=== PATIENT | male | born 1960 | race African-American/Black ===

== ENCOUNTER 2018-08-28 06:19 | Day surgery (SDC) | payer OTHER ==
[2018-08-26 13:17] VITALS: BMI 35.7
[2018-08-28 07:27] LABS: URINE APPEARANCE CLEAR; URINE BILIRUBIN NEGATIVE (<2.0 mg/dL); URINE COLOR STRAW; URINE GLUCOSE (UA) 3+ (NEGATIVE); URINE KETONE NEGATIVE (NEGATIVE); URINE LEUK ESTERASE NEGATIVE (NEGATIVE); URINE NITRITE NEGATIVE (NEGATIVE); URINE PROTEIN NEGATIVE (NEGATIVE); URINE UROBILINOGEN NEGATIVE mg/dL (0.2-1.0)
[2018-08-28] MEDS ORDERED: MIDAZOLAM HCL 2 MG/2 ML SINGLE DOSE VIAL ONE ×2 (07:33)
[2018-08-28] MEDS ORDERED: PROPOFOL 20 ML ONE (07:33)
[2018-08-28] MEDS ORDERED: LIDOCAINE HCL 1%, 10 MG/ML (20ML VIAL) ONE (07:36)
[2018-08-28] MEDS ORDERED: BUPIVACAINE HCL/PF 0.5% (5MG/ML) 10 ML VIAL ONE (07:37)
--- NOTE | 2018-08-28 08:06 | HP ---
Satellite [facility] - Chief Complaint Chief Complaint: right hand pain, numbness History of Present Illness: right CTS History Source: Patient Limitations to Obtaining History: No Limitations - Past Medical History Allergies/Adverse Reactions: Allergies Allergy/AdvReac Type Severity Reaction Status Date / Time No Known Drug Allergies Allergy Verified 05/02/16 10:44 - Current Medications Current Medications: Home Medications Medication Instructions Recorded Lisinopril [Prinivil] 20 mg PO DAILY 04/12/15 Metformin HCl [Metformin HCl ER] 1,000 mg PO BID 04/12/15 Oxycodone HCl/Acetaminophen 1 - 2 each PO Q6H #90 tablet MDD 8 05/03/16 [Percocet 10-325 mg Tablet] Sitagliptin Phosphate [Januvia] 100 mg PO DAILY 08/26/18 Satellite Physical Exam - Physical Examination Vital Signs: Vital Signs Period Temp Pulse Resp BP Sys/Avitia Pulse Ox Last 24 Hr 98.5 F 71 18 111/71 97 General Appearance: Well Nourished ENT: Clear Lung: Clear to auscultation Heart: Regular rate & rhythm Breasts: Soft Abdomen: Soft Extremities: No edema Satellite Impression/Plan - Impression/Plan Impression: right CTS Operative Procedure: right CTR, tenosynovectomy Date to be Performed: 08/28/18
[2018-08-28] MEDS ORDERED: ceFAZolin SODIUM 1 GM VIAL IVPB ONE ×2 (08:10→08:32)
[2018-08-28] MEDS ORDERED: ceFAZolin SODIUM 1 GM VIAL ONE (08:12)
[2018-08-28] MEDS ORDERED: DEXAMETHASONE SOD PHOSPHATE 4 MG/1 ML VIAL ONE (08:12)
[2018-08-28] MEDS ORDERED: LIDOCAINE HCL 1%, 10 MG/ML (20ML VIAL) INF ONE (08:30)
[2018-08-28] MEDS ORDERED: BUPIVACAINE HCL/PF 0.5% (5MG/ML) 10 ML VIAL IJ ONE (08:30)
--- NOTE | 2018-08-28 08:55 | OP ---
Operative Note - Note: Operative Date: 08/28/18 Pre-Operative Diagnosis: right CTS Operation: right CTR, tenosynovectomy Post-Operative Diagnosis: Same as Pre-op Surgeon: Venkat Akins Anesthesiologist/FERRY PILOT: Ruba Hollis Anesthesia: Local, MAC Specimens Removed: tenosynovium Estimated Blood Loss (mls): 0 Drains, Volume Out (mls): 0 Blood Volume Replaced (mls): 0 Fluid Volume Replaced (mls): 500 Operative Report Dictated: Yes
--- NOTE | 2018-08-28 09:24 | SPEC ---
DATE OF OPERATION: 08/28/2018 PREOPERATIVE DIAGNOSIS: Right carpal tunnel syndrome. POSTOPERATIVE DIAGNOSIS: Right carpal tunnel syndrome. PROCEDURE: Right carpal tunnel release and tenosynovectomy. SURGEON: Venkat Akins MD. ASSISTANTS: None. SMEARER: , PICC NURSE ANESTHESIA: MAC anesthesia, local injection of 12 mL of 0.5% Marcaine and 1% lidocaine mixed. DRAINS: None. COMPLICATIONS: None. SPECIMEN: Tenosynovium, right wrist. BLOOS LOSS: Minimal. FLUID REPLACEMENT: 500 mL. INDICATIONS: This patient is a 57-year-old male with a preoperative diagnosis of a right carpal tunnel syndrome. After understanding the potential risks, complications, alternatives and benefits of surgery versus nonsurgical treatment, the patient elected to undergo this procedure. DESCRIPTION OF PROCEDURE: The patient was brought to the operating room, peripheral IV placed and intravenous sedation was given. One gram of intravenous Ancef was given. MAC anesthesia was induced. A tourniquet was applied to the right upper arm and the right upper extremity was prepped and draped in sterile fashion. The entire case was done under 3.8 loupe magnification. A marking pen was utilized to onur out a longitudinal incision in an already existing skin crease. Twenty mL of 0.5% Marcaine mixed with 1% Lidocaine was injected in and around the surgical incision. The right upper extremity was elevated, exsanguinated with an Esmarch bandage and the tourniquet inflated to 250 mmHg. A No. 15 scalpel blade was utilized to cut down through the skin. Subcutaneous hemostasis was achieved with the bipolar cautery. Dissection was done through the superficial palmar fascia. Self-retaining retractors were placed into the wound. Under direct visualization, the transverse carpal ligament was transected with a No. 15 scalpel blade, exposing the median nerve and the contents of the carpal tunnel. The distal and proximal extents of the release were completed with a Littler scissor and checked with irrigation and my small finger. They were seen to be complete. Limited dissection was done on the radial side of the median nerve and more extensive dissection was done on the ulnar side of the median nerve. The patients nerve was seen to be quite compressed by epineurium and therefore a limited epineurotomy was performed. A Ragnell retractor was used to gently retract the median nerve in a radial direction. The patient had a lot of tenosynovitis and therefore a tenosynovectomy was performed off all 9 flexor tendons. This was passed off the field as tenosynovium right wrist. The floor of the carpal tunnel was checked. There were no abnormal masses or ganglion cysts. The area was copiously irrigated and washed out and closure begun. Undyed 4-0 Vicryl was used to close the deep dermal layer. Final skin reapproximation was done with horizontal mattress 4-0 nylon sutures. The area was then washed and dried, covered with Xeroform, 4x4s, fluffs between the fingers, Webril and a 4-inch plaster roll was utilized to make a volar splint, which was then wrapped with Vidal and Coban. The tourniquet was taken down after a total tourniquet time of 20 minutes. There were no complications during the case. The patient tolerated the procedure well and was brought to the ambulatory recovery room in stable condition. Tory [id number]
[2018-08-28] MEDS ORDERED: ONDANSETRON 4 MG/2 ML VIAL IVPUSH PRN (09:56)
[2018-08-28] MEDS ORDERED: oxyCODONE HCL 5 MG TABLET PO PRN ×2 (09:56)
[2018-08-28] MEDS ORDERED: LACTATED RINGERS SOLUTION 1,000 ML IV SCH (10:00)
[2018-08-28 10:12] VITALS: PULSE 80; TEMP 97.8
[2018-08-28 10:56] VITALS: BP 110/70
--- NOTE | 2018-08-29 13:34 | PATH ---
Surgical Pathology Report Patient Name: HAM MAX [facility]. Rec. #: [id number] /Age/Gender: 1960 (Age: 57) / M Account: [id number] [place] [facility] Taken: 08/28/2018 Received: 08/28/2018 Reported: 08/29/2018 Physicians: Venkat Akins M.D. Specimen(s) Received TENOSYNOVIUM Clinical History Right carpal tunnel Final Diagnosis TENOSYNOVIUM, RIGHT, CARPAL TUNNEL RELEASE: BENIGN DENSE FIBROCONNECTIVE TISSUE. Electronically Signed Natali Leigh M.D. Gross Description Received in formalin labeled "tenosynovium," is a 1.1 x 0.8 x 0.3 cm aggregate of murray-yellow portions of soft tissue, consistent with tenosynovium. The specimen is submitted in toto in one cassette. 08/28/201808/28/2018
== END 2018-08-28 10:57 | disposition home or self-care (01) ==
LOC: JASU-SURG 06:19
PROVIDERS: ATTEND Orthopaedic Surgery
PROC: 01N50ZZ Release Median Nerve, Open Approach (ICD-10-PCS; principal; 2018-08-28 08:00)
DX: G56.01 Carpal tunnel syndrome, right upper limb (principal)
CPT/HCPCS: 81003; 82962; 88304-TC; 94760

== ENCOUNTER 2019-05-28 06:07 | Day surgery (SDC) | payer BC ==
[2019-05-27 15:44] VITALS: BMI 35.7
[~2019-05-28 06:07] MED LIST: BUPIVACAINE HCL/PF 0.5% (5 MG/ML) 30 ML VIAL IJ ONE
[2019-05-28 07:41] LABS: PH,URINE 5.5 (5.0-8.0); URINE APPEARANCE CLEAR; URINE BILIRUBIN NEGATIVE (NEGATIVE); URINE COLOR YELLOW; URINE GLUCOSE (UA) 3+ (NEGATIVE); URINE KETONE NEGATIVE (NEGATIVE); URINE LEUK ESTERASE NEGATIVE (NEGATIVE); URINE NITRITE NEGATIVE (NEGATIVE); URINE PROTEIN NEGATIVE (NEGATIVE); URINE UROBILINOGEN 0.2 mg/dL (0.2-1.0)
[2019-05-28] MEDS ORDERED: MIDAZOLAM HCL 2 MG/2 ML SINGLE DOSE VIAL ONE ×2 (07:52)
[2019-05-28] MEDS ORDERED: SUCCINYLCHOLINE CHLORIDE 200 MG/10 ML SYRINGE ONE (07:52)
[2019-05-28] MEDS ORDERED: PROPOFOL 20 ML ONE ×3 (07:52)
[2019-05-28] MEDS ORDERED: BUPIVACAINE HCL/PF 0.5% (5 MG/ML) 30 ML VIAL IJ ONE (07:54)
[2019-05-28] MEDS ORDERED: ONDANSETRON 4 MG/2 ML VIAL IVPUSH PRN (07:58)
[2019-05-28] MEDS ORDERED: oxyCODONE HCL 5 MG TABLET PO PRN (07:58)
[2019-05-28] MEDS ORDERED: PROMETHAZINE HCL 25 MG/1 ML VIAL IVPB PRN (07:58)
[2019-05-28] MEDS ORDERED: LACTATED RINGERS SOLUTION 1,000 ML IV SCH (08:00)
--- NOTE | 2019-05-28 08:11 | HP ---
Satellite [facility] - Chief Complaint Chief Complaint: left knee pain History of Present Illness: left knee medial meniscus tear History Source: Patient Limitations to Obtaining History: No Limitations - Past Medical History Allergies/Adverse Reactions: Allergies Allergy/AdvReac Type Severity Reaction Status Date / Time No Known Drug Allergies Allergy Verified 05/28/19 06:48 - Current Medications Current Medications: Home Medications Medication Instructions Recorded Lisinopril [Prinivil] 20 mg PO DAILY 04/12/15 metFORMIN HCL [Metformin ER 1,000 mg PO BID 04/12/15 Osmotic] Oxycodone HCl/Acetaminophen 1 - 2 each PO Q6H #90 tablet MDD 8 05/03/16 [Percocet 10-325 mg Tablet] Sitagliptin Phosphate [Januvia] 100 mg PO DAILY 08/26/18 Dapagliflozin Propanediol [Farxiga] 10 mg PO DAILY 05/27/19 Satellite Physical Exam - Physical Examination Vital Signs: Vital Signs Period Temp Pulse Resp BP Sys/Avitia Pulse Ox Last 24 Hr 98.3 F 77 18 127/72 97 General Appearance: Well Nourished ENT: Clear Lung: Clear to auscultation Heart: Regular rate & rhythm Breasts: Soft Abdomen: Soft Extremities: No edema Satellite Impression/Plan - Impression/Plan Impression: left knee pain, medial meniscus tear Operative Procedure: left knee arthroscopy Date to be Performed: 05/28/19
[2019-05-28] MEDS ORDERED: ceFAZolin SODIUM 1 GM VIAL IVPB ONE (08:24)
--- NOTE | 2019-05-28 09:08 | OP ---
Operative Note - Note: Operative Date: 05/28/19 Pre-Operative Diagnosis: left knee pain, medial meniscus tear Operation: left knee arthroscopy, partial medial meniscectomy, debridement chondroplasty Post-Operative Diagnosis: Same as Pre-op Surgeon: Venkat Akins Anesthesiologist/PARQUETRY LAYER: Chiara Devries MD Anesthesia: General, Local Specimens Removed: shavings Estimated Blood Loss (mls): 0 Drains, Volume Out (mls): 0 Blood Volume Replaced (mls): 0 Fluid Volume Replaced (mls): 500 Operative Report Dictated: Yes
--- NOTE | 2019-05-28 10:27 | OP ---
DATE OF OPERATION: 05/28/2019 PREOPERATIVE DIAGNOSIS: Left knee pain and medial meniscus tear. POSTOPERATIVE DIAGNOSIS: Left knee pain and medial meniscus tear. PROCEDURE: Left knee arthroscopy, partial medial meniscectomy, and debridement chondroplasty. SURGEON: Panchito Cohen MD COOKIE BREAKER: None. ANESTHESIOLOGIST: Chiara Devries MD ANESTHESIA: LMA anesthesia with intraarticular injection of injection 20 mL 0.5% Marcaine. DRAINS: None. COMPLICATIONS: None. SPECIMENS: Arthroscopic shavings. BLOOD LOSS: None. BLOOD GIVEN: None. FLUID REPLACEMENT: 500 mL. INDICATIONS: This patient is a 58-year-old male with a preoperative diagnosis of left knee pain and a medial meniscus tear. After understanding the potential risks, complications, alternatives, and benefits of surgery versus nonsurgical treatment, the patient elected to undergo this procedure. DESCRIPTION OF PROCEDURE: The patient was brought into the operating room, peripheral IV placed, IV sedation was given, LMA anesthesia was induced. Ample Webril was placed around the left thigh, and a tourniquet was applied. A Styrofoam ring was applied. The C-clamp leg-corral was used. The left lower extremity was prepped and draped in sterile fashion, elevated, and exsanguinated with an Esmarch bandage. The tourniquet was inflated to 275 mmHg. A superolateral outflow portal was established, a lateral portal was established. Under direct visualization using a spinal needle, a medial portal was established, and diagnostic arthroscopy was performed. The patient was seen to clearly have a radial/complex type at the junction of the posterior horn and body of the medial meniscus. It was probed, opened up widely, and photographs were taken. Using a combination of straight basket forceps, upbiter, and left biter, as well as the curved shaver, a partial medial meniscectomy was performed. Photographs were taken before, during, and after. The patient did have an area of grade 3 chondromalacia slightly larger than the size of a quarter with some small cracks in grade 4 areas. This was gently debrided with a curved shaver. The medial tibial plateau looked good. Next, our attention turned to the intercondylar notch which looked good. The ACL looked good. There was some synovitis that looked good. There was excessive Hoffas fat pad which I removed. The lateral compartment was then directly visualized. It was seen to look quite good. The lateral meniscus was only very mildly frayed, but there was no osteoarthritis. Photographs were taken. Next, our attention turned to the patellofemoral joint. The patient had synovitis and additional fibrotic fat pad, which was removed, but the patellofemoral joint itself looked good. The articular cartilage looked good. It was put through a full range of motion and seemed to be good. The area was copiously irrigated and washed out. All instrumentation, excess saline, and debris were removed. The arthroscopic portals were closed with 3-0 nylon sutures. Then, 20 mL of 0.5% Marcaine were introduced into the joint. The area was then washed and dried, covered with Xeroform gauze, 4x4 gauze, Webril, and an Stewart bandage. The tourniquet was taken down after a total tourniquet time of about 18 minutes There were no complications during the case. The patient tolerated the procedure quite well and was brought to the ambulatory recovery room in stable condition. PANCHITO COHEN M.D. [id number]
[2019-05-28] MEDS ORDERED: oxyCODONE HCL 5 MG TABLET ONE (10:35)
[2019-05-28] MEDS ORDERED: oxyCODONE HCL 5 MG TABLET PO ONE (10:45)
[2019-05-28 10:52] VITALS: TEMP 98.1
[2019-05-28 11:29] VITALS: BP 116/73; PULSE 83
--- NOTE | 2019-05-30 20:23 | PATH ---
Surgical Pathology Report Patient Name: HAM MAX [facility]. Rec. #: [id number] /Age/Gender: 1960 (Age: 58) / M Account: [id number] Location: [facility] Taken: 05/28/2019 Received: 05/28/2019 Reported: 05/30/2019 Physicians: Venkat Akins M.D. Specimen(s) Received LEFT KNEE SHAVINGS Clinical History Tear left knee Final Diagnosis LEFT KNEE SHAVINGS: FRAGMENTS OF FIBROADIPOSE TISSUE, CARTILAGE, AND SYNOVIAL TISSUE WITH FOCAL DEGENERATIVE CHANGE. Electronically Signed Otf Casas M.D. Gross Description Received in formalin, labeled "shavings left knee," is a 5.8 x 4.5 x 0.6 cm. aggregate of murray-yellow soft tissue fragments. A community service representative portion is submitted in one cassette. /05/29/201905/29/2019
== END 2019-05-28 11:45 | disposition home or self-care (01) ==
LOC: JASU-SURG 06:07
PROVIDERS: ATTEND Orthopaedic Surgery
PROC: 0SBD4ZZ Excision of Left Knee Joint, Percutaneous Endoscopic Approach (ICD-10-PCS; principal; 2019-05-28 08:00)
DX: S83.232A Complex tear of medial meniscus, current injury, left knee, initial encounter (principal); X58.XXXA Exposure to other specified factors, initial encounter; Y93.9 Activity, unspecified; Y92.89 Other specified places as the place of occurrence of the external cause; Y99.9 Unspecified external cause status; I10 Essential (primary) hypertension; E11.9 Type 2 diabetes mellitus without complications; J44.9 Chronic obstructive pulmonary disease, unspecified; Z79.84 Long term (current) use of oral hypoglycemic drugs
CPT/HCPCS: 81003; 82962; 88304-TC; 94760

== ENCOUNTER 2021-04-13 05:16 | Day surgery (SDC) | payer BC, OTHER ==
[2021-04-12 11:48] VITALS: BMI 31.4
[2021-04-13 08:18] LABS: EPI CELLS 1 /uL (0-25.1); HYALINE CASTS 0 /uL (0-3.1); PH,URINE 5.5 (5.0-8.0); URINE APPEARANCE CLEAR; URINE BACTERIA 3 /uL (0-1359); URINE BILIRUBIN NEGATIVE (NEGATIVE); URINE COLOR YELLOW; URINE GLUCOSE (UA) NEGATIVE (NEGATIVE); URINE KETONE NEGATIVE (NEGATIVE); URINE LEUK ESTERASE NEGATIVE (NEGATIVE); URINE NITRITE NEGATIVE (NEGATIVE); URINE PROTEIN 1+ (NEGATIVE); URINE RBC 2 /uL (0-23.9); URINE WBC 2 /uL (0-25.8)
[2021-04-13 09:00] LABS: INR 0.88 (0.83-1.09); PROTHROMBIN TIME (PATIENT) 10.7 SEC (9.7-13.0)
[2021-04-13] MEDS ORDERED: PROPOFOL 20 ML ONE (09:00)
[2021-04-13] MEDS ORDERED: MIDAZOLAM HCL 2 MG/2 ML SINGLE DOSE VIAL ONE (09:00)
[2021-04-13 09:03] LABS: ACTIVATED PTT 26.9 SECONDS (25.2-36.5)
[2021-04-13] MEDS ORDERED: LIDOCAINE HCL 1%, 10 MG/ML (20ML VIAL) ONE (09:39)
[2021-04-13] MEDS ORDERED: BUPIVACAINE HCL 50 ML ONE (09:39)
[2021-04-13] MEDS ORDERED: BUPIVACAINE HCL/PF 0.5% (5MG/ML) 10 ML VIAL IJ ONE ×2 (10:09)
[2021-04-13] MEDS ORDERED: LIDOCAINE HCL 1%, 10 MG/ML (20ML VIAL) NR ONE (10:09)
[2021-04-13] MEDS ORDERED: KETOROLAC TROMETHAMINE 30 MG/1 ML VIAL ONE (10:24)
[2021-04-13] MEDS ORDERED: DEXAMETHASONE SOD PHOSPHATE 4 MG/1 ML VIAL ONE (10:24)
[2021-04-13] MEDS ORDERED: oxyCODONE HCL 5 MG TABLET PO PRN ×2 (10:34)
[2021-04-13] MEDS ORDERED: LACTATED RINGERS SOLUTION 1,000 ML IV SCH (10:45)
[2021-04-13 12:11] VITALS: BP 134/82; PULSE 82; TEMP 97.3
== END 2021-04-13 12:35 | disposition home or self-care (01) ==
LOC: JASU-SURG 05:16
PROVIDERS: ATTEND Orthopaedic Surgery
PROC: 0LB60ZZ Excision of Left Lower Arm and Wrist Tendon, Open Approach (ICD-10-PCS; 2021-04-13)
PROC: 01N50ZZ Release Median Nerve, Open Approach (ICD-10-PCS; principal; 2021-04-13 09:30)
PROC: 0LN80ZZ Release Left Hand Tendon, Open Approach (ICD-10-PCS; 2021-04-13 09:30)
DX: G56.02 Carpal tunnel syndrome, left upper limb (principal); M65.332 Trigger finger, left middle finger; E11.9 Type 2 diabetes mellitus without complications; I10 Essential (primary) hypertension; Z79.84 Long term (current) use of oral hypoglycemic drugs
CPT/HCPCS: 36415; 81003; 82962; 85610; 85730